=== PATIENT | male | born 1935 | race Caucasian/White ===

== ENCOUNTER 2019-07-24 13:28 | Day surgery (SDC) | payer MEDICARE, BC ==
--- NOTE | 2019-07-24 08:11 | History and Physical - [facility] ---
CHIEF COMPLAINT/HISTORY OF CHIEF COMPLAINT: This patient presents with a history of a post lumbar laminectomy radiculopathy. Diagnostic studies do show effusion of the lumbar spine at L5-S1 along with laminectomy. Diagnostics do confirm lumbar spinal stenosis with diffuse disk bulging at L3-L4 and L4-L5. His symptom pattern is pain with ambulation relieved with rest or forward bending. Classic symptoms of neurogenic and claudication exist. His treatment history has been conservatively based and all unsuccessful. His treatment history has gone back 10-15 years starting in 1993. PAST MEDICAL HISTORY: Hypertension, hypothyroidism, reflux esophagitis, peripheral neuropathy, and diverticular disease. PAST SURGICAL HISTORY: List to be provided. EMPLOYMENT STATUS: Retired. MEDICATIONS ON ADMISSION: List to be provided. ALLERGIES: None. FAMILY/PSYCHOSOCIAL HISTORY: Social history - Noncontributory. Family history - Coronary artery disease and cancer. SYSTEMS REVIEW: The patient is appropriate in no acute distress. PHYSICAL EXAMINATION: Height is 5'9", weight is 160. No vital signs. HEENT: Within normal limits. LUNGS: Clear. HEART: Rapid and regular. ABDOMEN: Nontender. MUSCULOSKELETAL: Examination of the musculoskeletal system shows the primary pain pattern to be lower extremity aggravated with walking, eliminated with sitting or forward bending. There are mild motor and sensory abnormalities into both legs. NEUROLOGIC: Cranial nerves are intact. IMPRESSION: 1. 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 2. LUMBAR SPINAL STENOSIS WITH NEUROGENIC INTERMITTENT CLAUDICATION, ICD-10 CODE M48.062. PLAN: The patient has the classic symptoms of neurogenic intermittent claudication and is here for an interspinal spacer placement at L3-L4 and L4-L5. We discussed some probable anatomic difficulties which may prevent the spacer placement at L4-L5, but certainly the spacer placement at L3-L4 would seem to be relatively straight forward anatomically. Six week restrictions have been carefully reviewed and discussed. We discussed the procedure in detail in the office. He was given information that fully explains the potential risks, side effects, and complications. JOB NUMBER: [id number] MTDD
[~2019-07-24 13:28] MED LIST: ACETAMINOPHEN 1,000 MG/100 ML BTL IVPB ONE; CEFAZOLIN 2 Gram 2 GM/50 ML BAG IVPB ONE; FAMOTIDINE 20MG TABLET PO ONE; MECLIZINE 25 MG TABLET PO ONE; METOCLOPRAMIDE 10 MG TABLET PO ONE
[2019-07-24] MEDS ORDERED: FENTANYL PF 100MCG/2ML VIAL IV ONE (13:29)
[2019-07-24] MEDS ORDERED: MIDAZOLAM HCL 2MG/2ML VIAL IV ONE (13:29)
[2019-07-24] MEDS ORDERED: LIDOCAINE 2% MDV (20MG/ML) 20ML VIAL IV ONE (13:29)
[2019-07-24] MEDS ORDERED: PROPOFOL 10 MG/ML VIAL IV ONE (13:29)
[2019-07-24] MEDS ORDERED: 0.9 % SODIUM CHLORIDE 1000ML 1,000 ML IV ONE ×2 (14:03→16:29)
[2019-07-24] MEDS ORDERED: LIDOCAINE 1% W/EPI 1:200,000 MPF 30ML SQ ONE (15:58)
[2019-07-24] MEDS ORDERED: BUPIVACAINE 0.5% W/EPI MPF 30 ML VIAL SQ ONE (15:59)
[2019-07-24] MEDS ORDERED: CEFAZOLIN 1G VIAL IR ONE (15:59)
--- NOTE | 2019-07-25 10:03 | Operative Note - [facility] ---
DATE OF SURGERY: 07/24/2019 PREOPERATIVE DIAGNOSIS: LUMBAR SPINAL STENOSIS WITH NEUROGENIC INTERMITTENT CLAUDICATION, ICD-10 CODE M48.062. OPERATION: 1. FLUOROSCOPICALLY GUIDED PLACEMENT OF INTERSPINAL SPACER - VERTIFLEX AT L3- L4. 2. FLUOROSCOPICALLY GUIDED PLACEMENT OF INTERSPINAL SPACER - VERTIFLEX AT L4- L5. SURGEON: Darrick Caballero D.O. ANESTHESIA: Local sedation. ANESTHESIA PROVIDER: Nba Meyer CRNA INDICATION: This patient presents with a history of lumbar spinal stenosis and neurogenic intermittent claudication or pain in his lower extremities. This pain is aggravated and irritated by ambulation and is controlled by sitting or bending forward. MRI shows lumbar spinal stenosis at L3-L4 and L4-L5, cage fusion at L5-S1. Standard x-rays shows stability of the fusion and multiple levels of spondylosis. Due to the failure of therapy, he is here for interspinal spacer placement at L3-L4 and L4-L5. He has had over 10-15 years of conservative therapies including spinal surgery which have all failed. PROCEDURE: Intravenous line, vital sign monitoring, IV sedation by Anesthesia. The patient was positioned prone. Sterile prep, sterile technique. With the patient prone with a pillow at his mid abdomen resulting in mild flexion, the spinal interspace at L3-L4 and L4-L5 were both identified, marked on the skin, skin was infiltrated with local. At L4-L5, the first interspinal spacer dilated was positioned using AP and lateral imaging. A dilator was then positioned on lateral images to distract the spinous processes, the dilator was removed, and then a reaming device was used to cavitate the interspinous ligament distal to the lamina. A #14 interspinal space was then inserted under AP and lateral images and then expanded distracting the spinous processes at L4-L5. The device was gently tapped on lateral imaging positioning it at the laminar line at L4- L5. The dilator instruments were removed. Moving to L3-L4 the skin was infiltrated, a first dilator was placed between the spinous processes using AP and lateral imaging. The second dilator was then used to distract the spinous processes. A reaming device was then used to cavitate or remove some of the interspinous ligament at the laminar line. A #12 interspinal spacer was then inserted with AP and lateral imaging positioned at the appropriate location at the inferior and superior spinous processes and then expanded. This was confirmed by AP and lateral imaging. The instruments were all removed. Antibiotic irrigation was performed at both. A Vicryl suture was placed at the interspinous ligament and then the incisions were closed with gail. Intravenous antibiotic had been given prior to the procedure. He had tolerated the technique without any difficulty. There was minimal to no blood loss. An Op-Site dressing was placed. He was transported to the Recovery Room stable. There were no side effects from the procedure or sedation. He was monitored until awake and stable and then discharged to home. There were no unusual side effects. No unusual pain patterns. DISCHARGE INSTRUCTIONS: 1. The sites are to remain clear and dry. If he chooses to shower he should keep the Op-Site dressing dry. 2. His standard medications should be resumed. He will start Levaquin 500 mg once a day for fourteen days. A prescription for Modena has been provided for incisional pain control. Office to contact the patient in next 24-48 hours to set up a time in 7-10 days for us to evaluate the incisions and remove the gail, until then he is to keep his activities low. Limit bend, lift, push, and pull. His total period of restrictions is 6 weeks. H will be seen in the office and we will evaluate his restrictions and activities. All other instructions were provided. JOB NUMBER: [id number] MTDD
--- NOTE | 2019-07-25 21:36 | RADIOLOGY REPORT ---
EXAMINATION: Lumbar Spine Single View EXAM DATE: 07/24/2019 5:11 PM TECHNIQUE: AP view INDICATION: VERTIFLEX IMPLANT 2 LEVELS COMPARISON: None ENCOUNTER: Initial IMPRESSION: Single AP view of the lumbar spine demonstrates surgical hardware at the L3-4 and L4-5 levels with ov erlying skin gail. Surgical hardware is also present at the L5-S1 level. Alignment is not assessed without a lateral view. The bones are demineralized. Dictated by: Juan Medellin MD on 07/25/2019 9:33 PM. .
== END 2019-07-24 17:43 | disposition home or self-care (01) ==
LOC: SUR 13:28
PROVIDERS: ATTEND Pain Medicine Interventional Pain Medicine
DX: M48.062 Spinal stenosis, lumbar region with neurogenic claudication (principal); I10 Essential (primary) hypertension; E03.9 Hypothyroidism, unspecified; E11.9 Type 2 diabetes mellitus without complications
CPT/HCPCS: 36416; 72020; 82948; C1821; J0690; J7030